=== PATIENT | female | born 1960 | race Caucasian/White ===

== ENCOUNTER 2018-10-19 13:48 | Emergency (ER) | payer OTHER, MEDICAID ==
[2018-10-19 14:20] VITALS: BP 117/60
--- NOTE | 2018-10-19 14:44 | UC ---
Ear Complaint HPI - HPI Summary HPI Summary: The patient is a 58-year-old female that for the past 5 days has experienced here pressure and vertigo when she initially gets up in the morning. She has had nasal congestion and some postnasal drip. She has had ear infections in the past. He has been using her Lillian pot with some relief. - History of Current Complaint Chief Complaint: UCGeneralIllness Stated Complaint: EAR PAIN Time Seen by Provider: 10/19/18 14:30 Hx Obtained From: Patient Onset/Duration: Gradual Onset Severity Initially: Moderate Severity Currently: Mild Pain Intensity: 1 Pain Scale Used: 0-10 Numeric Aggravating Factors: Other - supine position Associated Signs/Symptoms: Positive: URI Symptoms Related History: Seasonal Allergies, T & A - Allergies/Home Medications Allergies/Adverse Reactions: Allergies Allergy/AdvReac Type Severity Reaction Status Date / Time ciprofloxacin Allergy See Comment Verified 10/19/18 14:08 codeine Allergy Hives Verified 10/19/18 14:42 diazepam Allergy Vomiting Verified 10/19/18 14:42 phenytoin Allergy Vomiting Verified 10/19/18 14:42 Sulfa (Sulfonamide Allergy Hives Verified 10/19/18 14:42 Antibiotics) Home Medications: Home Medications Ascorbic Acid,Sod/Zinc Ox,Gluc [Zinc and C Lozenge] 1 each PO DAILY 10/19/18 [ History Confirmed 10/19/18] Cyanocobalamin TAB* [Vitamin B12 TAB*] 500 mcg PO DAILY 10/19/18 [History Confirmed 10/19/18] Escitalopram Oxalate [Lexapro 10 mg] 10 mg PO DAILY 10/19/18 [History Confirmed 10/19/18] Fexofenadine/Pseudoephedrine [Carina-D 24 Hour Tablet] 1 each PO DAILY [History Confirmed 10/19/18] Fluconazole [Diflucan 10mg/mo irasema] 10 mg PO BEDTIME 10/19/18 [History Confirmed 10/19/18] Ketoconazole 2 % CREAM (NF) [Nizoral 2% CREAM (NF)] 1 applic TOPICAL DAILY 10/19 [History Confirmed 10/19/18] L.acidoph,Paracasei, B.lactis [Probiotic] 1 each PO DAILY 10/19/18 [History Confirmed 10/19/18] Lysine/B Comp/Folic Acid/Zinc [Supervite] 1 liq PO DAILY 10/19/18 [History Confirmed 10/19/18] [place]-3S/Dha/Epa/Fish Oil/D3 [[place]-3 + D 500-200 mg-Unit] 1 cap PO DAILY [History Confirmed 10/19/18] hydrOXYzine HCL TAB* [Atarax 10 MG TAB*] 10 mg PO BEDTIME 10/19/18 [History Confirmed 10/19/18] PMH/Surg Hx/FS Hx/Imm Hx Previously Healthy: Yes Cancer History: Other Other Cancer History: endometrial - Surgical History Surgical History: Yes Surgery Procedure, Year, and Place: TONSILS; SPINAL TAP, BENIGN TUMOR REMOVED FROM LOWER SPINE 2011. hysterectomy 2017 - Family History Known Family History: Positive: Cardiac Disease, Hypertension Negative: Seizure Disorder, Blood Disorder - Social History Alcohol Use: Rare Substance Use Type: None Smoking Status (MU): Never Smoked Tobacco - Immunization History Most Recent Tetanus Shot: 3-4 yrs ago Review of Systems All Other Systems Reviewed And Are Negative: Yes Constitutional: Positive: Negative Skin: Positive: Negative Eyes: Positive: Negative ENT: Positive: Ear Ache, Sinus Congestion Respiratory: Positive: Negative Cardiovascular: Positive: Negative Gastrointestinal: Positive: Negative Genitourinary: Positive: Negative Motor: Positive: Negative Neurovascular: Positive: Negative Musculoskeletal: Positive: Negative Neurological: Positive: Negative Psychological: Positive: Negative Physical Exam Triage Information Reviewed: Yes Appearance: Well-Appearing, No Pain Distress, Well-Nourished Vital Signs: Initial Vital Signs Temp 99 F 10/19/18 14:15 Pulse 58 10/19/18 14:15 Resp 16 10/19/18 14:15 BP 117/60 10/19/18 14:15 Pulse Ox 99 10/19/18 14:15 Vital Signs Reviewed: Yes Eyes: Positive: Conjunctiva Clear, Other: - EOMI/PERRL, no nystagmus ENT: Positive: Hearing grossly normal, Pharynx normal, Nasal congestion, TM bulging, Sinus tenderness - mild bilat max sinus tenderness, Uvula midline. Negative: Nasal drainage, TM dull, TM red, Tonsillar swelling, Tonsillar exudate , Trismus, Muffled voice, Hoarse voice Dental Exam: Normal Neck: Positive: Supple, Nontender, No Lymphadenopathy Respiratory: Positive: Lungs clear, Normal breath sounds, No respiratory distress Cardiovascular: Positive: RRR, No Murmur Abdomen Description: Positive: Nontender Musculoskeletal: Positive: ROM Intact, No Edema Neurological: Positive: Alert Psychological Exam: Normal Skin Exam: Normal Ear Complaint Course/Dx - Differential Dx/Diagnosis Provider Diagnoses: bilteral serous otitis media Discharge - Sign-Out/Discharge Documenting (check all that apply): Patient Departure All imaging exams completed and their final reports reviewed: No Studies - Discharge Plan Condition: Stable Disposition: HOME Prescriptions: predniSONE [Deltasone 20 MG TAB] 20 - 40 mg PO DAILY #15 tab Patient Education Materials: Serous Otitis Media (ED) Referrals: Bhavin Arriaga MD [Primary Care Provider] - Additional Instructions: continue to use neti pot I suggest you increase your flonase to two sprays each nostril twice daily for 1 -2 weeks see your ENT if not better in 1-2 weeks recheck for new or worsening symptoms - Billing Disposition and Condition Condition: STABLE Disposition: Home
== END 2018-10-19 14:50 | disposition home or self-care (01) ==
LOC: UCEAST 13:48
DX: H65.93 Unspecified nonsuppurative otitis media, bilateral (principal); Z88.1 Allergy status to other antibiotic agents; Z88.5 Allergy status to narcotic agent; Z88.8 Allergy status to other drugs, medicaments and biological substances
CPT/HCPCS: 99212; G0463

== ENCOUNTER 2019-01-16 20:34 | Emergency (ER) | payer MEDICAID, OTHER ==
--- NOTE | 2019-01-16 22:02 | ED ---
Lower Extremity - HPI Summary HPI Summary: 58-year-old female presents left calf pain for the past couple weeks. It started around [place] and seemed to get better. She states did a lot of house work in the past couple weeks and pain got worst. She states that went for a walk today and pain became intense. States she has a mild constant ache in the back of the calf and medial distal thigh. pain is worst with activity. she had a septoplasty performed early Dec and was immobile for week afterwards. she is not on hormone therapy and is not a smokers. She denies any chest pain , palpations or shortness of breath. father had a blood clot. states pain feels like a tear. - History of Current Complaint Chief Complaint: EDExtremityLower Stated Complaint: LEFT LEG PAIN Time Seen by Provider: 01/16/19 21:31 Pain Intensity: 8 - Allergies/Home Medications Allergies/Adverse Reactions: Allergies Allergy/AdvReac Type Severity Reaction Status Date / Time ciprofloxacin Allergy See Comment Verified 01/16/19 20:37 codeine Allergy Hives Verified 01/16/19 20:37 diazepam Allergy Vomiting Verified 01/16/19 20:37 phenytoin Allergy Vomiting Verified 01/16/19 20:37 Sulfa (Sulfonamide Allergy Hives Verified 01/16/19 20:37 Antibiotics) PMH/Surg Hx/FS Hx/Imm Hx Cardiovascular History: Denies: Hx Aneurysm, Hx Hypertension, Hx Pacemaker/ICD Respiratory History: Denies: Hx Asthma Musculoskeletal History: Reports: Other Musculoskeletal History - CHRONIC LUMBAR /SACRAL PAIN Psychiatric History: Denies: Hx Panic Disorder - Surgical History Surgery Procedure, Year, and Place: TONSILS; SPINAL TAP, BENIGN TUMOR REMOVED FROM LOWER SPINE 2011. hysterectomy 2018 Infectious Disease History: No Infectious Disease History: Denies: Hx Clostridium Difficile, Hx Hepatitis, Hx Human Immunodeficiency Virus (HIV), Hx of Known/Suspected MRSA, Hx Shingles, Hx Tuberculosis, Hx Known/ Suspected VRE, Hx Known/Suspected VRSA, History Other Infectious Disease, Traveled Outside the [place] in Last 30 Days - Family History Known Family History: Positive: Cardiac Disease, Hypertension Negative: Seizure Disorder, Blood Disorder - Social History Alcohol Use: Rare Substance Use Type: Reports: None Smoking Status (MU): Never Smoked Tobacco Review of Systems Negative: Fever Negative: Chest Pain Negative: Shortness Of Breath Positive: Myalgia - left leg pain All Other Systems Reviewed And Are Negative: Yes Physical Exam Triage Information Reviewed: Yes Vital Signs On Initial Exam: Initial Vitals Temp Pulse Resp BP Pulse Ox 98.9 F 58 16 149/68 96 01/16/19 20:34 01/16/19 20:34 01/16/19 20:34 01/16/19 20:34 01/16/19 20:34 Vital Signs Reviewed: Yes Appearance: Positive: Well-Appearing Skin: Positive: Warm, Dry Head/Face: Positive: Normal Head/Face Inspection Eyes: Positive: Normal, Conjunctiva Clear ENT: Positive: Pharynx normal Respiratory/Lung Sounds: Positive: Clear to Auscultation, Breath Sounds Present Cardiovascular: Positive: Normal, RRR Musculoskeletal: Positive: Strength/ROM Intact - left leg, Other - good pulses Neurological: Positive: Normal Psychiatric: Positive: Normal Diagnostics - Vital Signs Vital Signs Temp Pulse Resp BP Pulse Ox 01/16/19 20:34 98.9 F 58 16 149/68 96 - Laboratory Lab Statement: Any lab studies that have been ordered have been reviewed, and results considered in the medical decision making process. - Ultrasound No standard instances Ultrasound Interpretation Completed By: Radiologist Summary of Ultrasound Findings: IMPRESSION: No acute findings. No evidence of deep vein thrombosis. Lower Extremity Course/Dx - Course Course Of Treatment: 58-year-old female presents left calf pain for the past couple weeks. It started around [place] and seemed to get better. She states did a lot of house work in the past couple weeks and pain got worst. She states that went for a walk today and pain became intense. States she has a mild constant ache in the back of the calf and medial distal thigh. pain is worst with activity. she had a septoplasty performed early Dec and was immobile for week afterwards. she is not on hormone therapy and is not a smokers. She denies any chest pain, palpations or shortness of breath. father had a blood clot. states pain feels like a tear. on exam has tenderness left calf and medial distal thigh. no edema noted. neurovascular intact. u/s for dvt neg. likely is sprain. told to treat with ice and rest. told to follow up with primary or ortho. patient understand and agrees with plan. - Diagnoses Differential Diagnosis/HQI/PQRI: Positive: DVT, Fracture (Closed), Strain Provider Diagnoses: Left leg pain Discharge - Sign-Out/Discharge Documenting (check all that apply): Patient Departure Patient Received Moderate/Deep Sedation with Procedure: No - Discharge Plan Condition: Good Disposition: HOME Patient Education Materials: Leg Pain (ED) Referrals: Bhavin Arriaga MD [Primary Care Provider] - Alejandro Payne MD [Medical Doctor] - Additional Instructions: Take Tylenol or ibuprofen every 6 hours as needed for pain Apply ice, rest, elevate Follow up with ortho or primary care physician Return to ED if develop any new or worsening symptoms - Billing Disposition and Condition Condition: GOOD Disposition: Home
[2019-01-16 23:17] VITALS: BP 152/83
== END 2019-01-16 23:14 | disposition home or self-care (01) ==
LOC: ED 20:34
DX: M79.662 Pain in left lower leg (principal); M79.652 Pain in left thigh; Z88.1 Allergy status to other antibiotic agents; Z88.5 Allergy status to narcotic agent; Z88.2 Allergy status to sulfonamides; Z88.8 Allergy status to other drugs, medicaments and biological substances
CPT/HCPCS: 99282